=== PATIENT | male | born 1935 | race Caucasian/White ===

== ENCOUNTER → 2016-07-19 | Outpatient (REF) | payer MEDICARE, BC ==
[~2016-07-19] MED LIST: /WARF25TA PO; ACET50TA PO; ASPI81TA90 PO; BYST2.5T PO; FINA5TAB2 PO; PRAV40TA2 PO; RAMI10CA PO; TYLE650T25 PO; ULTR50TA PO
== END ==
LOC: M SFHCCLAY 08:43
PROVIDERS: ATTEND Family Medicine
DX: I35.0 Nonrheumatic aortic (valve) stenosis (principal); I25.810 Atherosclerosis of coronary artery bypass graft(s) without angina pectoris; N40.1 Benign prostatic hyperplasia with lower urinary tract symptoms; Z53.8 Procedure and treatment not carried out for other reasons

== ENCOUNTER → 2016-07-20 | Outpatient (REF) | payer MEDICARE, BC ==
[2016-07-20 11:37] LABS: MEAN CORPUSCULAR HEMOGLOBIN 28.6 pg (27.0-33.0); MEAN CORPUSCULAR VOLUME 89.5 fl (80.0-96.0)
[2016-07-20 12:09] LABS: ALBUMIN 3.5 GM/DL (3.2-5.2); ALBUMIN/GLOBULIN RATIO 1.09 (1.00-1.93); ALKALINE PHOSPHATASE 64 U/L (45-117); ALT/SGPT 17 U/L (12-78); ANION GAP 8 MEQ/L (8-16); AST/SGOT 15 U/L (15-37); BILIRUBIN,TOTAL 0.6 MG/DL (0.2-1.0); BLOOD UREA NITROGEN 12 MG/DL (7-18); CALCIUM LEVEL 8.7 MG/DL (8.8-10.2); CARBON DIOXIDE LEVEL 30 MEQ/L (21-32); CHLORIDE LEVEL 106 MEQ/L (98-107); CHOLESTEROL LEVEL 136 MG/DL (<200); CREATININE FOR GFR 0.79 MG/DL (0.70-1.30); GLOMERULAR FILTRATION RATE > 60.0 (>35); GLUCOSE, FASTING 98 MG/DL (83-110); POTASSIUM SERUM 4.2 MEQ/L (3.5-5.1); SODIUM LEVEL 144 MEQ/L (136-145); TOTAL PROTEIN 6.7 GM/DL (6.4-8.2); TRIGLYCERIDES LEVEL 69 MG/DL (<150)
== END ==
LOC: M SFHCCLAY 06:50
PROVIDERS: ATTEND Family Medicine
DX: I35.0 Nonrheumatic aortic (valve) stenosis (principal); I25.810 Atherosclerosis of coronary artery bypass graft(s) without angina pectoris; N40.1 Benign prostatic hyperplasia with lower urinary tract symptoms

== ENCOUNTER → 2017-01-17 | Outpatient (REF) | payer MEDICARE, BC ==
[2017-01-17 12:28] LABS: ANION GAP 4 MEQ/L (8-16); BLOOD UREA NITROGEN 16 MG/DL (7-18); CARBON DIOXIDE LEVEL 30 MEQ/L (21-32); CHLORIDE LEVEL 108 MEQ/L (98-107); CREATININE FOR GFR 0.81 MG/DL (0.70-1.30); FREE T4 1.17 NG/DL (0.76-1.46); GLOMERULAR FILTRATION RATE > 60.0 (>35); GLUCOSE, FASTING 100 MG/DL (83-110); POTASSIUM SERUM 4.5 MEQ/L (3.5-5.1); SODIUM LEVEL 142 MEQ/L (136-145)
== END ==
LOC: M SFHCCLAY 07:34
PROVIDERS: ATTEND Family Medicine
DX: I10 Essential (primary) hypertension (principal); K21.9 Gastro-esophageal reflux disease without esophagitis; R49.0 Dysphonia; Z12.5 Encounter for screening for malignant neoplasm of prostate
CPT/HCPCS: 80048; 84439; 84443; G0103; G0463

== ENCOUNTER → 2017-06-18 | Outpatient (CLI) | payer MEDICARE, BC | LOC: M CLY 10:11 | DX: M25.561 Pain in right knee (principal); Z96.651 Presence of right artificial knee joint | CPT/HCPCS: 73564; G0463 ==

== ENCOUNTER → 2017-10-10 | Outpatient (REF) | payer MEDICARE, BC ==
[2017-10-10 11:42] LABS: ALBUMIN 3.7 GM/DL (3.2-5.2); ALBUMIN/GLOBULIN RATIO 1.03 (1.00-1.93); ALKALINE PHOSPHATASE 67 U/L (45-117); ALT/SGPT 22 U/L (12-78); ANION GAP 4 MEQ/L (8-16); AST/SGOT 18 U/L (7-37); BILIRUBIN,TOTAL 0.7 MG/DL (0.2-1.0); BLOOD UREA NITROGEN 18 MG/DL (7-18); CALCIUM LEVEL 8.7 MG/DL (8.8-10.2); CARBON DIOXIDE LEVEL 29 MEQ/L (21-32); CHLORIDE LEVEL 109 MEQ/L (98-107); CHOLESTEROL LEVEL 147 MG/DL (<200); CHOLESTEROL RISK RATIO 3.585 (<5); CREATININE FOR GFR 0.81 MG/DL (0.70-1.30); GLOMERULAR FILTRATION RATE > 60.0 (>35); GLUCOSE, FASTING 96 MG/DL (70-100); HDL CHOLESTEROL 41 MG/DL (>40); LDL CHOLESTEROL 91.4 MG/DL (<100); NON-HDL-C 106 MG/DL; POTASSIUM SERUM 4.3 MEQ/L (3.5-5.1); SODIUM LEVEL 142 MEQ/L (136-145); TOTAL PROTEIN 7.3 GM/DL (6.4-8.2); TRIGLYCERIDES LEVEL 73 MG/DL (<150)
== END ==
LOC: M SFHCCLAY 07:28
DX: I25.810 Atherosclerosis of coronary artery bypass graft(s) without angina pectoris (principal); E78.00 Pure hypercholesterolemia, unspecified
CPT/HCPCS: 80053

== ENCOUNTER → 2018-02-27 | Outpatient (CLI) | payer MEDICARE, BC | LOC: M CLY 10:29 | DX: M48.8X2 Other specified spondylopathies, cervical region (principal); M25.78 Osteophyte, vertebrae; M50.30 Other cervical disc degeneration, unspecified cervical region | CPT/HCPCS: 72050; G0463 ==

== ENCOUNTER → 2018-03-04 | Outpatient (CLI) | payer MEDICARE, BC | LOC: M RAD 10:31 | DX: H53.2 Diplopia (principal); I65.21 Occlusion and stenosis of right carotid artery | CPT/HCPCS: 93880 ==

== ENCOUNTER → 2018-06-26 | Outpatient (REF) | payer MEDICARE, BC ==
[2018-06-27 12:23] LABS: HEMATOCRIT 42.8 % (42.0-52.0); HEMOGLOBIN 13.4 g/dl (13.5-17.5); MEAN CORPUSCULAR HGB CONC 31.3 g/dl (32.0-36.5); MEAN CORPUSCULAR VOLUME 89.5 fl (80.0-96.0); PLATELET COUNT, AUTOMATED 174 10^3/uL (150-450); RED BLOOD COUNT 4.78 10^6/uL (4.30-6.10); WHITE BLOOD COUNT 5.3 10^3/uL (4.0-10.0)
[2018-06-27 12:59] LABS: ERYTHROCYTE SEDIMENTATION RATE 12 mm/hr (0-20)
== END ==
LOC: M SFHCCLAY 14:15
PROVIDERS: ATTEND Family Medicine
DX: M13.10 Monoarthritis, not elsewhere classified, unspecified site (principal)

== ENCOUNTER → 2018-06-26 | Outpatient (CLI) | payer MEDICARE, BC ==
--- NOTE | 2018-06-26 15:14 | REP ---
Left hand series: Five views. History: Monoarticular arthritis. Findings: There is mild diffuse osteopenia. Advanced osteoarthritic narrowing and sclerosis are seen at the first carpometacarpal articulation as well as in the naviculo-multangular articulations. There is some vascular calcification. Mild spurring is seen at the IP joint of the thumb and at the DIP joints of the index, long, and ring fingers. There is prominent spurring at the PIP joint of the index finger as well. Moderate osteoarthritic changes are seen at the PIP joint of the small finger as well. Impression: Osteoarthritic changes as noted above.
== END ==
LOC: M CLY 14:38
PROVIDERS: ATTEND Family Medicine
DX: M85.842 Other specified disorders of bone density and structure, left hand (principal); M19.042 Primary osteoarthritis, left hand
CPT/HCPCS: 73130; 84550; 85027; 85652; G0463

== ENCOUNTER → 2018-07-24 | Outpatient (CLI) | payer MEDICARE, BC ==
--- NOTE | 2018-07-24 16:18 | REP ---
Clinical: Left shoulder pain. Technique: Internal rotation, external rotation, and Y view of the left shoulder. Findings: Moderate cortical irregularity and spurring at the acromioclavicular joint is appreciated. Subtle blunting of the ossified glenoid rim is identified. No acute fracture or dislocation noted. The subacromial space is normal. No periarticular calcifications or loose bodies noted. Surrounding soft tissues unremarkable. Impression: Moderate arthritic changes. No acute fracture or dislocation. Electronically Signed by Peng Jeronimo MD 07/24/2018 04:09 P
== END ==
LOC: M CLY 15:40
PROVIDERS: ATTEND Family Medicine
DX: M25.712 Osteophyte, left shoulder (principal); M25.512 Pain in left shoulder
CPT/HCPCS: 73030; G0463

== ENCOUNTER → 2019-03-10 | Outpatient (REF) | payer MEDICARE, BC ==
[~2019-03-10] MED LIST changes: -/WARF25TA PO; -ACET50TA PO; +COUM1TAB18 PO; +MAPA500T17 PO
[2019-03-10 12:12] LABS: HEMATOCRIT 43.3 % (42.0-52.0); HEMOGLOBIN 13.4 g/dl (13.5-17.5); MEAN CORPUSCULAR HEMOGLOBIN 28.6 pg (27.0-33.0); MEAN CORPUSCULAR HGB CONC 30.9 g/dl (32.0-36.5); MEAN CORPUSCULAR VOLUME 92.5 fl (80.0-96.0); PLATELET COUNT, AUTOMATED 151 10^3/uL (150-450); RED BLOOD COUNT 4.68 10^6/uL (4.30-6.10); WHITE BLOOD COUNT 4.4 10^3/uL (4.0-10.0)
[2019-03-10 12:22] LABS: ALBUMIN 3.4 GM/DL (3.2-5.2); ALT/SGPT 20 U/L (12-78); BILIRUBIN,TOTAL 0.8 MG/DL (0.2-1.0); BLOOD UREA NITROGEN 15 MG/DL (7-18); CALCIUM LEVEL 8.8 MG/DL (8.8-10.2); CARBON DIOXIDE LEVEL 30 MEQ/L (21-32); CHLORIDE LEVEL 109 MEQ/L (98-107); CHOLESTEROL LEVEL 162 MG/DL (<200); CREATININE FOR GFR 0.86 MG/DL (0.70-1.30); GLOMERULAR FILTRATION RATE > 60.0 (>35); GLUCOSE, FASTING 89 MG/DL (70-100); HDL CHOLESTEROL 45 MG/DL (>40); LDL CHOLESTEROL 96 MG/DL (<100); NON-HDL-C 117 MG/DL; POTASSIUM SERUM 4.2 MEQ/L (3.5-5.1); SODIUM LEVEL 144 MEQ/L (136-145); TOTAL PROTEIN 6.9 GM/DL (6.4-8.2); TRIGLYCERIDES LEVEL 107 MG/DL (<150)
== END ==
LOC: M SFHCCLAY 07:06
PROVIDERS: ATTEND Family Medicine
DX: N40.1 Benign prostatic hyperplasia with lower urinary tract symptoms (principal); K21.9 Gastro-esophageal reflux disease without esophagitis; I35.0 Nonrheumatic aortic (valve) stenosis; Z79.899 Other long term (current) drug therapy; Z79.82 Long term (current) use of aspirin

== ENCOUNTER → 2019-11-10 | Outpatient (REF) | payer MEDICARE, BC | LOC: M SFHCCLAY 15:22 | PROVIDERS: ATTEND Family Medicine | DX: Z11.59 Encounter for screening for other viral diseases (principal) ==